=== PATIENT | male | born 1995 | race Caucasian/White ===

== ENCOUNTER 2016-10-22 19:53 | Emergency (ER) | payer SELFPAY ==
[2016-10-22 20:03] VITALS: BP 156/90
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
== END 2016-10-22 21:10 | disposition home or self-care (01) ==
LOC: JP.ED 19:53
DX: S80.12XA Contusion of left lower leg, initial encounter (principal); V80.018A Animal-rider injured by fall from or being thrown from other animal in noncollision accident, initial encounter; Y93.I9 Activity, other involving external motion; Y92.39 Other specified sports and athletic area as the place of occurrence of the external cause
CPT/HCPCS: 73140-26-FA; 73140-FA; 73590-26-LT; 73590-LT; 99283; 99284